=== PATIENT | female | born 1945 | race Caucasian/White ===

== ENCOUNTER → 2016-08-22 | Outpatient (CLI) | payer MEDICARE, OTHER ==
[~2016-08-22] MED LIST: AMARYL4 MG PO; AMIODARONE HCL200 MG PO; CLARITIN10 MG PO; CLOBETASOL EMU100 GM TP; ELIQUIS2.5 MG PO; FEOSOL325 MG PO; GLIMEPIRIDE4 MG PO; GYNE-LOTRIMIN 145 GM EXT; HUMALOG100 UNIT/2 SQ; JANUVIA50 MG PO; LANTUS100 UNIT/1 SQ; LASIX40 MG PO; LEVAQUIN500 MG PO; LEVEMIR100 UNIT/1 SC; LIPITOR TAB 2020 MG PO; LOPRESSOR 50 MG50 MG PO; LOTRIMIN CREAM45 GM TD; NEURONTIN 300300 MG PO; NITROSTAT0.4 MG SL; NORCO 10-325 T1 EACH PO; NORCO 5-325 TA1 EACH PO; NORVASC 5 MG TAB5 MG PO; SINGULAIR10 MG PO; TERAZOL 745 GM TD; TERAZOL 745 GM TOP; TERAZOL 745 GM VG; TRADJENTA5 MG PO; VITAMIN B-1000 MCG/M IM; ZOLOFT100 MG PO; ZYRTEC10 MG PO
== END ==
LOC: HEART 5 15:20
DX: I50.22 Chronic systolic (congestive) heart failure (principal); I42.0 Dilated cardiomyopathy
CPT/HCPCS: 93306

== ENCOUNTER 2016-09-10 05:48 | Emergency (ER) | payer MEDICARE, OTHER ==
[~2016-09-10 05:48] MED LIST changes: -AMIODARONE HCL200 MG PO; -CLOBETASOL EMU100 GM TP; -GLIMEPIRIDE4 MG PO; -GYNE-LOTRIMIN 145 GM EXT; -HUMALOG100 UNIT/2 SQ; -LANTUS100 UNIT/1 SQ; -LEVAQUIN500 MG PO; -LOTRIMIN CREAM45 GM TD; -NITROSTAT0.4 MG SL; -NORCO 5-325 TA1 EACH PO; -SINGULAIR10 MG PO; -TERAZOL 745 GM TD; -TERAZOL 745 GM TOP; -TERAZOL 745 GM VG; -TRADJENTA5 MG PO; -VITAMIN B-1000 MCG/M IM
[2016-11-13] MEDS ORDERED: GLIMEPIRIDE4 MG PO (22:50)
[2016-11-13] MEDS ORDERED: VITAMIN B-1000 MCG/M IM (22:52)
[2016-11-13] MEDS ORDERED: TERAZOL 745 GM TOP (22:53)
[2016-11-13] MEDS ORDERED: NITROSTAT0.4 MG SL (22:59)
[2016-11-15] MEDS ORDERED: LASIX40 MG PO (14:22)
[2016-11-15] MEDS ORDERED: SINGULAIR10 MG PO (14:59)
[2016-11-15] MEDS ORDERED: TERAZOL 745 GM VG (22:54)
[2016-11-15] MEDS ORDERED: CLOBETASOL EMU100 GM TP (22:55)
[2016-11-15] MEDS ORDERED: GYNE-LOTRIMIN 145 GM EXT (22:56)
[2016-11-20] MEDS ORDERED: TRADJENTA5 MG PO (08:14)
[2016-11-20] MEDS ORDERED: TERAZOL 745 GM TD (08:14)
[2016-11-20] MEDS ORDERED: LOTRIMIN CREAM45 GM TD (08:15)
[2016-11-20] MEDS ORDERED: LANTUS100 UNIT/1 SQ (08:16)
[2016-11-20] MEDS ORDERED: HUMALOG100 UNIT/2 SQ (08:16)
[2016-11-20] MEDS ORDERED: NORVASC 5 MG TAB5 MG PO (08:17)
[2016-11-21] MEDS ORDERED: AMIODARONE HCL200 MG PO (09:29)
[2016-11-21] MEDS ORDERED: LEVAQUIN500 MG PO (09:35)
[2016-11-21] MEDS ORDERED: NORCO 5-325 TA1 EACH PO (09:37)
== END 2016-09-10 07:33 | disposition home or self-care (01) ==
LOC: ER1 05:48
DX: R22.43 Localized swelling, mass and lump, lower limb, bilateral (principal); E11.9 Type 2 diabetes mellitus without complications; Z79.84 Long term (current) use of oral hypoglycemic drugs; Z79.4 Long term (current) use of insulin; Z79.899 Other long term (current) drug therapy
CPT/HCPCS: 99283

== ENCOUNTER 2016-09-20 21:41 | Emergency (ER) | payer MEDICARE, OTHER ==
[2016-09-20 22:55] LABS: HEMOGLOBIN 11.3 gm/dl (12.3-15.3); RED BLOOD COUNT 3.91 M/UL (4.00-5.10); WHITE BLOOD COUNT 5.9 K/UL (4.5-11.0)
[2016-11-13] MEDS ORDERED: GLIMEPIRIDE4 MG PO (22:50)
[2016-11-13] MEDS ORDERED: VITAMIN B-1000 MCG/M IM (22:52)
[2016-11-13] MEDS ORDERED: TERAZOL 745 GM TOP (22:53)
[2016-11-13] MEDS ORDERED: NITROSTAT0.4 MG SL (22:59)
[2016-11-15] MEDS ORDERED: LASIX40 MG PO (14:22)
[2016-11-15] MEDS ORDERED: SINGULAIR10 MG PO (14:59)
[2016-11-15] MEDS ORDERED: TERAZOL 745 GM VG (22:54)
[2016-11-15] MEDS ORDERED: CLOBETASOL EMU100 GM TP (22:55)
[2016-11-15] MEDS ORDERED: GYNE-LOTRIMIN 145 GM EXT (22:56)
[2016-11-20] MEDS ORDERED: TERAZOL 745 GM TD (08:14)
[2016-11-20] MEDS ORDERED: TRADJENTA5 MG PO (08:14)
[2016-11-20] MEDS ORDERED: LOTRIMIN CREAM45 GM TD (08:15)
[2016-11-20] MEDS ORDERED: LANTUS100 UNIT/1 SQ (08:16)
[2016-11-20] MEDS ORDERED: HUMALOG100 UNIT/2 SQ (08:16)
[2016-11-20] MEDS ORDERED: NORVASC 5 MG TAB5 MG PO (08:17)
[2016-11-21] MEDS ORDERED: AMIODARONE HCL200 MG PO (09:29)
[2016-11-21] MEDS ORDERED: LEVAQUIN500 MG PO (09:35)
[2016-11-21] MEDS ORDERED: NORCO 5-325 TA1 EACH PO (09:37)
== END 2016-09-21 02:27 | disposition home or self-care (01) ==
LOC: ER1 21:41
PROVIDERS: Emergency Medicine
DX: I13.0 Hypertensive heart and chronic kidney disease with heart failure and stage 1 through stage 4 chronic kidney disease, or unspecified chronic kidney disease (principal); I50.20 Unspecified systolic (congestive) heart failure; N18.9 Chronic kidney disease, unspecified; E87.6 Hypokalemia; J06.9 Acute upper respiratory infection, unspecified; E11.22 Type 2 diabetes mellitus with diabetic chronic kidney disease
CPT/HCPCS: 36415; 71010; 80053; 82550; 82553; 83874; 83880; 84443; 84484; 85025; 93005; 99285; J0696

== ENCOUNTER 2016-10-12 20:11 | Emergency (ER) | payer MEDICARE, OTHER ==
[2016-10-12 21:59] LABS: HEMOGLOBIN 10.6 gm/dl (12.3-15.3); RED BLOOD COUNT 3.72 M/UL (4.00-5.10)
[2016-11-13] MEDS ORDERED: GLIMEPIRIDE4 MG PO (22:50)
[2016-11-13] MEDS ORDERED: VITAMIN B-1000 MCG/M IM (22:52)
[2016-11-13] MEDS ORDERED: TERAZOL 745 GM TOP (22:53)
[2016-11-13] MEDS ORDERED: NITROSTAT0.4 MG SL (22:59)
[2016-11-15] MEDS ORDERED: LASIX40 MG PO (14:22)
[2016-11-15] MEDS ORDERED: SINGULAIR10 MG PO (14:59)
[2016-11-15] MEDS ORDERED: TERAZOL 745 GM VG (22:54)
[2016-11-15] MEDS ORDERED: CLOBETASOL EMU100 GM TP (22:55)
[2016-11-15] MEDS ORDERED: GYNE-LOTRIMIN 145 GM EXT (22:56)
[2016-11-20] MEDS ORDERED: TERAZOL 745 GM TD (08:14)
[2016-11-20] MEDS ORDERED: TRADJENTA5 MG PO (08:14)
[2016-11-20] MEDS ORDERED: LOTRIMIN CREAM45 GM TD (08:15)
[2016-11-20] MEDS ORDERED: LANTUS100 UNIT/1 SQ (08:16)
[2016-11-20] MEDS ORDERED: HUMALOG100 UNIT/2 SQ (08:16)
[2016-11-20] MEDS ORDERED: NORVASC 5 MG TAB5 MG PO (08:17)
[2016-11-21] MEDS ORDERED: AMIODARONE HCL200 MG PO (09:29)
[2016-11-21] MEDS ORDERED: LEVAQUIN500 MG PO (09:35)
[2016-11-21] MEDS ORDERED: NORCO 5-325 TA1 EACH PO (09:37)
== END 2016-10-13 00:30 | disposition home or self-care (01) ==
LOC: ER1 20:11
PROVIDERS: Emergency Medicine
DX: J18.9 Pneumonia, unspecified organism (principal)
CPT/HCPCS: 36415; 71010; 80053; 83605; 83880; 84484; 85025; 87040; 87070; 87205; 93005; 94664; 96361; 96374; 96375; 99284; J1940; J2543; J3370; J7050

== ENCOUNTER 2020-04-11 23:25 | Inpatient (IN) | payer MEDICARE, OTHER ==
[~2020-04-11] VITALS: Ht 167.6 cm; Wt 122.0 kg
[~2020-04-11 23:25] MED LIST changes: +AMIODARONE HCL200 MG PO; +AMOX TR-K CLV1 EAC4 PO; +CEPHALEXIN500 MG PO; +CLARITIN 10MG T10 MG PO; +CLEOCIN 150MG150 MG PO; +CLOBETASOL EMU100 GM TP; +CYANOCOBAL1000 MCG/1 INJ; +GABAPENTIN400 MG PO; +GLIMEPIRIDE4 MG PO; +GYNE-LOTRIMIN 145 GM EXT; +HUMALOG 10100 UNITS/ SC; +HUMALOG100 UNIT/3 SQ; +HYSEPT473 ML TOP; +KEFLEX500 MG PO; +LANTUS INS100 UTS/M1 SQ; +LANTUS SOL100 UNIT/1 SQ; +LEVAQUIN500 MG PO; +LOTRIMIN CREAM15 GM TP; +LOTRIMIN CREAM45 GM TD; +MYCOSTATIN100000 UTS PO; -NEURONTIN 300300 MG PO; +NEURONTIN 400400 MG PO; +NITROSTAT0.4 MG SL; +NORCO 5-325 TA1 EACH PO; +OMNICEF 300 MG300 MG PO; +SINGULAIR10 MG PO; +TERAZOL 745 GM TD; +TERAZOL 745 GM TOP; +TERAZOL 745 GM VG; +TIROSINT50 MCG PO; +TRADJENTA5 MG PO; +VANCOMYCIN HCL125 MG PO; +VANCOMYCIN500 MG/101 IV; +VITAMIN C1000 MG PO; +ZESTRIL5 MG PO; +ZITHROMAX TRI-500 MG PO
[2020-04-12 01:22] LABS: HEMOGLOBIN 12.7 gm/dl (12.3-15.3); RED BLOOD COUNT 4.19 M/UL (4.00-5.10)
[2020-04-12 07:54] LABS: HEMOGLOBIN 11.3 gm/dl (12.3-15.3); RED BLOOD COUNT 3.79 M/UL (4.00-5.10); WHITE BLOOD COUNT 10.7 K/UL (4.5-11.0)
[2020-04-13 05:04] LABS: BORDETELLA PARAPERTUSSIS Not Detected (Not Detectd); BORDETELLA PERTUSSIS Not Detected (Not Detectd); CHLAMYDIA PNEUMONIAE Not Detected (Not Detectd); CORONAVIRUS HKU1 Not Detected (Not Detectd); CORONAVIRUS NL63 Not Detected (Not Detectd); CORONAVIRUS OC43 Not Detected (Not Detectd); CORONOAVIRUS 229E Not Detected (Not Detectd); HUMAN METAPNEUMOVIRUS Not Detected (Not Detectd); HUMAN RHINOVIRUS/ENTEROVIRUS Not Detected (Not Detectd); INFLUENZA A Not Detected (Not Detectd); INFLUENZA B Not Detected (Not Detectd); MYCOPLASMA PNEUMONIAE Not Detected (Not Detectd); PARAINFLUENZA VIRUS 1 Not Detected (Not Detectd); PARAINFLUENZA VIRUS 2 Not Detected (Not Detectd); PARAINFLUENZA VIRUS 3 Not Detected (Not Detectd); PARAINFLUENZA VIRUS 4 Not Detected (Not Detectd); RESPIRATORY SYNCYTIAL VIRUS Not Detected (Not Detectd)
[2020-04-13 06:20] LABS: SARS-CoV-2 DETECTED (Not Detectd)
[2020-04-14 11:07] LABS: HEMOGLOBIN 11.5 gm/dl (12.3-15.3); RED BLOOD COUNT 3.83 M/UL (4.00-5.10)
[2020-04-15 05:25] LABS: RED BLOOD COUNT 3.66 M/UL (4.00-5.10); WHITE BLOOD COUNT 7.3 K/UL (4.5-11.0)
[2020-04-18] MEDS ORDERED: LISINOPRIL10 MG PO (12:06)
[2020-04-18] MEDS ORDERED: AMPICILLIN 500500 MG PO (12:11)
== END 2020-04-18 15:40 | disposition home health service (06) | DRG 871 ==
LOC: ER1 23:25 → CDU 04-12 02:52 → MED SURG 4 04-12 16:54
PROVIDERS: Emergency Medicine; Internal Medicine; ADMIT Internal Medicine
PROC: XW033E5 Introduction of Remdesivir Anti-infective into Peripheral Vein, Percutaneous Approach, New Technology Group 5 (ICD-10-PCS; 2020-04-13)
PROC: 8E0ZXY6 Isolation (ICD-10-PCS; 2020-04-13)
PROC: XW13325 Transfusion of Convalescent Plasma (Nonautologous) into Peripheral Vein, Percutaneous Approach, New Technology Group 5 (ICD-10-PCS; principal; 2020-04-14)
DX: A41.89 Other specified sepsis (principal); U07.1 COVID-19; J12.89 Other viral pneumonia; J15.9 Unspecified bacterial pneumonia; J96.21 Acute and chronic respiratory failure with hypoxia; E66.2 Morbid (severe) obesity with alveolar hypoventilation; Z68.41 Body mass index [BMI] 40.0-44.9, adult; I50.32 Chronic diastolic (congestive) heart failure; A41.81 Sepsis due to Enterococcus; D69.6 Thrombocytopenia, unspecified; I11.0 Hypertensive heart disease with heart failure; L89.326 Pressure-induced deep tissue damage of left buttock; L89.316 Pressure-induced deep tissue damage of right buttock; L89.892 Pressure ulcer of other site, stage 2; E11.621 Type 2 diabetes mellitus with foot ulcer; E78.5 Hyperlipidemia, unspecified; L97.529 Non-pressure chronic ulcer of other part of left foot with unspecified severity; I48.0 Paroxysmal atrial fibrillation; Z95.810 Presence of automatic (implantable) cardiac defibrillator; Z99.81 Dependence on supplemental oxygen; Z90.49 Acquired absence of other specified parts of digestive tract; Z83.3 Family history of diabetes mellitus; Z79.890 Hormone replacement therapy; Z79.4 Long term (current) use of insulin; Z79.899 Other long term (current) drug therapy
CPT/HCPCS: 36415; 36600; 51701; 71045; 80048; 80053; 80202; 81001; 82803; 82962; 83605; 83735; 84100; 85025; 86900; 86901; 86927; 87040; 87077; 87086; 87186; 87633; 93005; 94760; 96365; 96366; 96367; 96368; 96375; 99285; J0290; J0456; J0696; J1100; J1650; J2405; J2550; J3370; J3475; J7030; J7070; U0002

== ENCOUNTER 2020-09-14 08:51 | Emergency (ER) | payer MEDICARE, OTHER ==
[~2020-09-14 08:51] MED LIST changes: +AMPICILLIN 500500 MG PO; +LISINOPRIL10 MG PO
[2020-09-15] MEDS ORDERED: BACTROBAN OINT22 GM TOP (12:25)
[2020-09-15] MEDS ORDERED: NYSTATIN15 GM TP (12:26)
[2020-09-15] MEDS ORDERED: KETOCONAZOLE120 ML TP (12:26)
[2020-09-15] MEDS ORDERED: LISINOPRIL5 MG PO (12:27)
[2020-09-15] MEDS ORDERED: VITAMIN D21250 MCG PO (14:35)
== END 2020-09-14 10:45 | disposition home or self-care (01) ==
LOC: ER1 08:51
DX: Z20.822 Contact with and (suspected) exposure to COVID-19 (principal); E11.9 Type 2 diabetes mellitus without complications; I50.9 Heart failure, unspecified
CPT/HCPCS: 0240U; 99282; J7030

== ENCOUNTER 2020-09-14 23:31 | Inpatient (IN) | payer MEDICARE, OTHER ==
[~2020-09-14] VITALS: Ht 167.6 cm; Wt 129.0 kg
[2020-09-15 00:10] LABS: HEMOGLOBIN 14.6 gm/dl (12.3-15.3); RED BLOOD COUNT 4.81 M/UL (4.00-5.10); WHITE BLOOD COUNT 16.7 K/UL (4.5-11.0)
[2020-09-15 00:38] LABS: BUN/CREATININE RATIO 13 (0-10)
[2020-09-15 03:25] LABS: BORDETELLA PARAPERTUSSIS Not Detected (Not Detectd); BORDETELLA PERTUSSIS Not Detected (Not Detectd); CHLAMYDIA PNEUMONIAE Not Detected (Not Detectd); CORONAVIRUS HKU1 Not Detected (Not Detectd); CORONAVIRUS NL63 Not Detected (Not Detectd); CORONAVIRUS OC43 Not Detected (Not Detectd); CORONOAVIRUS 229E Not Detected (Not Detectd); HUMAN METAPNEUMOVIRUS Not Detected (Not Detectd); HUMAN RHINOVIRUS/ENTEROVIRUS Not Detected (Not Detectd); INFLUENZA A Not Detected (Not Detectd); INFLUENZA B Not Detected (Not Detectd); MYCOPLASMA PNEUMONIAE Not Detected (Not Detectd); PARAINFLUENZA VIRUS 1 Not Detected (Not Detectd); PARAINFLUENZA VIRUS 2 Not Detected (Not Detectd); PARAINFLUENZA VIRUS 3 Not Detected (Not Detectd); PARAINFLUENZA VIRUS 4 Not Detected (Not Detectd); RESPIRATORY SYNCYTIAL VIRUS Not Detected (Not Detectd)
[2020-09-15 04:33] LABS: SARS-CoV-2 NOT DETECTED (Not Detectd)
[2020-09-15] MEDS ORDERED: BACTROBAN OINT22 GM TOP (12:25)
[2020-09-15] MEDS ORDERED: KETOCONAZOLE120 ML TP (12:26)
[2020-09-15] MEDS ORDERED: NYSTATIN15 GM TP (12:26)
[2020-09-15] MEDS ORDERED: LISINOPRIL5 MG PO (12:27)
[2020-09-15 13:05] LABS: ACINETOBACTER BAUMANNII Not Detected (Negative); CANDIDA ALBICANS Not Detected (Negative); CANDIDA KRUSEI Not Detected (Negative); CANDIDA TROPICALIS Not Detected (Negative); ENTEROCOCCUS Not Detected (Negative); ESCHERICHIA COLI Not Detected (Negative); HAEMOPHILUS INFLUENZAE Not Detected (Negative); KLEBSIELLA OXYTOCA Not Detected (Negative); KLEBSIELLA PNEUMONIAE Not Detected (Negative); KPC-CARBAPENEM-RESISTANCE GENE Not Detected (Negative); PROTEUS Not Detected (Negative); PSEUDOMONAS AERUGINOSA Not Detected (Negative); SERRATIA MARCESANS Not Detected (Negative); STAPHYLOCOCCUS Not Detected (Negative); STAPHYLOCOCCUS AUREUS Not Detected (Negative); STREP AGALACTIAE (GROUP B) Not Detected (Negative); STREP PYOGENES (GROUP A) Not Detected (Negative); mecA (METHICILLIN RESIST GENE Not Detected (Negative); vanA/B (VANCOMYCIN RESIST GENE Not Detected (Negative)
[2020-09-15] MEDS ORDERED: VITAMIN D21250 MCG PO (14:35)
[2020-09-15 15:05] LABS: STREPTOCOCCUS DETECTED (Negative)
[2020-09-16 02:46] LABS: HEMOGLOBIN 11.7 gm/dl (12.3-15.3); RED BLOOD COUNT 3.89 M/UL (4.00-5.10); WHITE BLOOD COUNT 11.1 K/UL (4.5-11.0)
[2020-09-18 03:41] LABS: HEMOGLOBIN 11.1 gm/dl (12.3-15.3); RED BLOOD COUNT 3.78 M/UL (4.00-5.10)
[2020-09-18 03:42] LABS: WHITE BLOOD COUNT 8.2 K/UL (4.5-11.0)
[2020-09-18 11:04] LABS: ADENOVIRUS F 40/41 Not Detected (Negative); ASTROVIRUS Not Detected (Negative); CAMPYLOBACTER Not Detected (Negative); CLOSTRIDIUM DIFFICILE TOX A/B Not Detected (Negative); CRYPTOSPORIDIUM Not Detected (Negative); E.COLI 0157 Not Detected (Negative); ENTAMOEBA HISTOLYTICA Not Detected (Negative); ENTEROAGGREGATIVE E.COLI (EAEC Not Detected (Negative); ENTEROPATHOGENIC E.COLI (EPEC) Not Detected (Negative); ENTEROTOXIGENIC E.COLI (ETEC) Not Detected (Negative); GIARDIA LAMBLIA Not Detected (Negative); NOROVIRUS GI/GII Not Detected (Negative); PLESIOMONAS SHIGELLOIDES Not Detected (Negative); ROTOVIRUS A Not Detected (Negative); SALMONELLA Not Detected (Negative); SAPOVIRUS Not Detected (Negative); SHIG/ENTEROINVAS.ECOLI (EIEC) Not Detected (Negative); SHIGA-LIK TOX.PRO.E.COLI (STEC Not Detected (Negative); VIBRIO Not Detected (Negative); VIBRIO CHOLERAE Not Detected (Negative); YERSINIA ENTEROCOLITICA Not Detected (Negative)
[2020-09-19 03:20] LABS: RED BLOOD COUNT 4.03 M/UL (4.00-5.10); WHITE BLOOD COUNT 8.6 K/UL (4.5-11.0)
[2020-09-20 09:48] LABS: RED BLOOD COUNT 4.03 M/UL (4.00-5.10); WHITE BLOOD COUNT 6.7 K/UL (4.5-11.0)
[2020-09-21 03:53] LABS: HEMOGLOBIN 11.3 gm/dl (12.3-15.3); RED BLOOD COUNT 3.84 M/UL (4.00-5.10); WHITE BLOOD COUNT 5.2 K/UL (4.5-11.0)
[2020-09-22 03:26] LABS: HEMOGLOBIN 11.5 gm/dl (12.3-15.3); RED BLOOD COUNT 3.84 M/UL (4.00-5.10)
[2020-09-24 05:32] LABS: HEMOGLOBIN 12.4 gm/dl (12.3-15.3)
[2020-09-24 05:42] LABS: RED BLOOD COUNT 4.44 M/UL (4.00-5.10)
[2020-09-26 05:27] LABS: HEMOGLOBIN 12.4 gm/dl (12.3-15.3); RED BLOOD COUNT 4.18 M/UL (4.00-5.10); WHITE BLOOD COUNT 6.1 K/UL (4.5-11.0)
[2020-09-27 02:46] LABS: HEMOGLOBIN 12.1 gm/dl (12.3-15.3); RED BLOOD COUNT 4.11 M/UL (4.00-5.10); WHITE BLOOD COUNT 5.6 K/UL (4.5-11.0)
--- NOTE | 2020-09-27 10:46 | NUR ---
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 Dr. Gupta on the floor reported of patient frequent bowel movement-soft but not liquid form, patient hemmoroids and discolored buttocks/cocyx area with no skin opening. acknowledged
--- NOTE | 2020-09-28 08:00 | NUR ---
patient checks his own sugar and manages his own insulin.
[2020-09-28] MEDS ORDERED: LISINOPRIL5 MG PO (10:39)
[2020-09-28] MEDS ORDERED: AMLODIPINE BESYL5 MG PO (10:39)
[2020-09-28] MEDS ORDERED: K-DUR TAB 20 M20 MEQ PO (10:39)
[2020-09-28] MEDS ORDERED: ELIQUIS 5 MG TAB5 MG PO (10:39)
[2020-09-28] MEDS ORDERED: FUROSEMIDE40 MG PO (10:39)
[2020-09-28] MEDS ORDERED: BENZONATATE100 MG PO (10:39)
[2020-09-28] MEDS ORDERED: GABAPENTIN300 MG PO (10:39)
[2020-09-28] MEDS ORDERED: SERTRALINE HCL50 MG PO (10:39)
--- NOTE | 2020-09-28 11:00 | NUR ---
reported earlier to dr. ingram during his rounds of patient right eyes. patient informed md that this is not a new episode and the condition of her right eyes happened before and it will subside. patient denies pain, no swelling, no blurry vision reproted
[2020-09-29 05:51] LABS: HEMOGLOBIN 13.6 gm/dl (12.3-15.3); RED BLOOD COUNT 4.58 M/UL (4.00-5.10); WHITE BLOOD COUNT 4.9 K/UL (4.5-11.0)
[2020-09-29] MEDS ORDERED: ATORVASTATIN CA20 MG PO (11:17)
== END 2020-09-29 21:00 | DRG 871 ==
LOC: ER1 23:31 → PROG CARE 09-15 01:41 → M/S 09-15 01:41 → CDU 09-15 01:41 → PROG CARE 09-15 14:48 → M/S 09-18 19:52
PROVIDERS: Family Medicine; Internal Medicine; Internal Medicine Infectious Disease; Physician Assistant; ADMIT Internal Medicine
DX: A40.9 Streptococcal sepsis, unspecified (principal); J18.9 Pneumonia, unspecified organism; J96.01 Acute respiratory failure with hypoxia; G93.41 Metabolic encephalopathy; I50.33 Acute on chronic diastolic (congestive) heart failure; L97.429 Non-pressure chronic ulcer of left heel and midfoot with unspecified severity; I48.20 Chronic atrial fibrillation, unspecified; I42.0 Dilated cardiomyopathy; E66.2 Morbid (severe) obesity with alveolar hypoventilation; N17.9 Acute kidney failure, unspecified; M86.9 Osteomyelitis, unspecified; I42.8 Other cardiomyopathies; I13.0 Hypertensive heart and chronic kidney disease with heart failure and stage 1 through stage 4 chronic kidney disease, or unspecified chronic kidney disease; A52.16 Charcot's arthropathy (tabetic); Z68.42 Body mass index [BMI] 45.0-49.9, adult; N30.00 Acute cystitis without hematuria; E03.9 Hypothyroidism, unspecified; E78.5 Hyperlipidemia, unspecified; R53.81 Other malaise; D63.8 Anemia in other chronic diseases classified elsewhere; B96.4 Proteus (mirabilis) (morganii) as the cause of diseases classified elsewhere; K52.9 Noninfective gastroenteritis and colitis, unspecified; Z20.822 Contact with and (suspected) exposure to COVID-19; E11.9 Type 2 diabetes mellitus without complications; E87.6 Hypokalemia; B95.4 Other streptococcus as the cause of diseases classified elsewhere; K21.9 Gastro-esophageal reflux disease without esophagitis; Z66 Do not resuscitate; G62.9 Polyneuropathy, unspecified; I95.9 Hypotension, unspecified; I44.7 Left bundle-branch block, unspecified; F32.9 Major depressive disorder, single episode, unspecified; D69.6 Thrombocytopenia, unspecified; E86.0 Dehydration; M81.0 Age-related osteoporosis without current pathological fracture; N18.30 Chronic kidney disease, stage 3 unspecified; Z88.8 Allergy status to other drugs, medicaments and biological substances; Z86.73 Personal history of transient ischemic attack (TIA), and cerebral infarction without residual deficits; Z79.01 Long term (current) use of anticoagulants; Z95.810 Presence of automatic (implantable) cardiac defibrillator; Z90.49 Acquired absence of other specified parts of digestive tract; Z83.3 Family history of diabetes mellitus; Z91.010 Allergy to peanuts; Z82.49 Family history of ischemic heart disease and other diseases of the circulatory system; Z86.16 Personal history of COVID-19
CPT/HCPCS: ECHO; 0240U; 36415; 36600; 71045; 80048; 80053; 80202; 81001; 82550; 82553; 82803; 82962; 83605; 83735; 83874; 83880; 84484; 85025; 85610; 85730; 86140; 87040; 87077; 87086; 87150; 87186; 87507; 87633; 93005; 93306; 94760; 96365; 96375; 97110; 97110-GP-CQ; 97116; 97116-GP-CQ; 97162; 97166; 97530; 97530-GP-CQ; 99282; 99285; A6212; J0360; J0456; J0696; J1335; J1940; J2405; J2543; J3370; J7030; J7070; U0002

== ENCOUNTER → 2021-02-07 | Outpatient (CLI) | payer MEDICARE, OTHER ==
[~2021-02-07] MED LIST changes: +AMLODIPINE BESYL5 MG PO; +ATORVASTATIN CA20 MG PO; +BACTROBAN OINT22 GM TOP; +BENZONATATE100 MG PO; +ELIQUIS 5 MG TAB5 MG PO; +FUROSEMIDE40 MG PO; +GABAPENTIN300 MG PO; +K-DUR TAB 20 M20 MEQ PO; +KETOCONAZOLE120 ML TP; +LISINOPRIL5 MG PO; +NYSTATIN15 GM TP; +SERTRALINE HCL50 MG PO; +VITAMIN D21250 MCG PO
== END ==
LOC: US 12-21 13:30
PROVIDERS: Internal Medicine Nephrology
DX: N18.32 Chronic kidney disease, stage 3b (principal); N25.81 Secondary hyperparathyroidism of renal origin; E87.6 Hypokalemia; N20.0 Calculus of kidney; N26.1 Atrophy of kidney (terminal)
CPT/HCPCS: 36415; 80053; 82570; 83735; 83970; 84100; 84156

== ENCOUNTER 2021-04-19 16:48 | Emergency (ER) | payer MEDICARE, OTHER ==
[2021-04-19 21:24] LABS: HEMOGLOBIN 13.5 gm/dl (12.3-15.3); RED BLOOD COUNT 4.81 M/UL (4.00-5.10); WHITE BLOOD COUNT 5.5 K/UL (4.5-11.0)
[2021-04-19 21:46] LABS: BUN/CREATININE RATIO 11 (0-10)
[2021-04-20] MEDS ORDERED: AUGMENTIN 875-1 EACH PO (01:05)
[2021-04-20] MEDS ORDERED: ZOFRAN ODT 4 MG4 MG PO (01:05)
== END 2021-04-20 01:20 | disposition home or self-care (01) ==
LOC: ER1 16:48
PROVIDERS: Physician Assistant
DX: E11.621 Type 2 diabetes mellitus with foot ulcer (principal); E11.65 Type 2 diabetes mellitus with hyperglycemia; I48.91 Unspecified atrial fibrillation; I10 Essential (primary) hypertension; L03.116 Cellulitis of left lower limb; E66.01 Morbid (severe) obesity due to excess calories; Z20.822 Contact with and (suspected) exposure to COVID-19; E78.5 Hyperlipidemia, unspecified; K21.9 Gastro-esophageal reflux disease without esophagitis; Z90.49 Acquired absence of other specified parts of digestive tract; Z88.2 Allergy status to sulfonamides
CPT/HCPCS: 36415; 36600; 51701; 71045; 73630; 80053; 81001; 82550; 82553; 82803; 83605; 83690; 83874; 84484; 85025; 86140; 93005; 99285; U0002

== ENCOUNTER 2021-08-14 15:17 | Inpatient (IN) | payer MEDICARE, OTHER ==
[~2021-08-14] VITALS: Ht 167.6 cm; Wt 126.8 kg
[~2021-08-14 15:17] MED LIST changes: +AUGMENTIN 875-1 EACH PO; +LEVOTHYROXINE50 MCG PO; -TIROSINT50 MCG PO; +ZOFRAN ODT 4 MG4 MG PO
[2021-08-14 15:42] LABS: HEMOGLOBIN 13.2 gm/dl (12.3-15.3); RED BLOOD COUNT 4.57 M/UL (4.00-5.10); WHITE BLOOD COUNT 9.4 K/UL (4.5-11.0)
[2021-08-15] MEDS ORDERED: SYNTHROID50 MCG PO (03:42)
[2021-08-15] MEDS ORDERED: ATORVASTATIN CA40 MG PO (03:43)
[2021-08-15] MEDS ORDERED: SERTRALINE HCL100 MG PO (03:43)
[2021-08-15] MEDS ORDERED: LISINOPRIL30 MG PO (03:43)
[2021-08-15 04:36] LABS: HEMOGLOBIN 12.2 gm/dl (12.3-15.3); RED BLOOD COUNT 4.27 M/UL (4.00-5.10); WHITE BLOOD COUNT 10.5 K/UL (4.5-11.0)
[2021-08-15] MEDS ORDERED: GABAPENTIN400 MG PO (09:21)
[2021-08-15] MEDS ORDERED: LANTUS100 UNIT/1 SC (09:24)
[2021-08-15] MEDS ORDERED: LEVEMIR FL100 UNIT/1 SQ (12:31)
[2021-08-15] MEDS ORDERED: GLIMEPIRIDE4 MG PO (12:32)
[2021-08-15] MEDS ORDERED: HUMALOG100 UNIT/3 SQ (12:34)
[2021-08-16 06:45] LABS: HEMOGLOBIN 11.3 gm/dl (12.3-15.3); RED BLOOD COUNT 3.97 M/UL (4.00-5.10)
[2021-08-16 06:47] LABS: WHITE BLOOD COUNT 5.4 K/UL (4.5-11.0)
[2021-08-17 02:14] LABS: HEMOGLOBIN 11.4 gm/dl (12.3-15.3); RED BLOOD COUNT 4.01 M/UL (4.00-5.10); WHITE BLOOD COUNT 6.4 K/UL (4.5-11.0)
[2021-08-17 09:51] LABS: ADENOVIRUS F 40/41 Not Detected (Negative); ASTROVIRUS Not Detected (Negative); CAMPYLOBACTER Not Detected (Negative); CRYPTOSPORIDIUM Not Detected (Negative); E.COLI 0157 Not Detected (Negative); ENTAMOEBA HISTOLYTICA Not Detected (Negative); ENTEROAGGREGATIVE E.COLI (EAEC Not Detected (Negative); ENTEROTOXIGENIC E.COLI (ETEC) Not Detected (Negative); GIARDIA LAMBLIA Not Detected (Negative); NOROVIRUS GI/GII Not Detected (Negative); PLESIOMONAS SHIGELLOIDES Not Detected (Negative); SALMONELLA Not Detected (Negative); SAPOVIRUS Not Detected (Negative); SHIG/ENTEROINVAS.ECOLI (EIEC) Not Detected (Negative); SHIGA-LIK TOX.PRO.E.COLI (STEC Not Detected (Negative); VIBRIO Not Detected (Negative); VIBRIO CHOLERAE Not Detected (Negative); YERSINIA ENTEROCOLITICA Not Detected (Negative)
[2021-08-17] MEDS ORDERED: LOPRESSOR 25 MG25 MG PO (12:33)
[2021-08-17] MEDS ORDERED: ELIQUIS 2.5 MG2.5 MG PO (12:33)
[2021-08-17] MEDS ORDERED: KEFLEX CAP 250250 MG PO (12:41)
[2021-08-17 12:58] LABS: CLOSTRIDIUM DIFFICILE TOX A/B Not Detected (Negative)
[2021-08-17 12:59] LABS: ENTEROPATHOGENIC E.COLI (EPEC) DETECTED (Negative); ROTOVIRUS A DETECTED (Negative)
--- NOTE | 2021-08-17 15:03 | NUR ---
REPORT CALLED TO ZACK AT [facility]
== END 2021-08-17 14:48 | disposition home health service (06) | DRG 690 ==
LOC: ER1 15:17 → CDU 20:26 → PROG CARE 20:26
PROVIDERS: Internal Medicine; ADMIT Internal Medicine
DX: N30.00 Acute cystitis without hematuria (principal); E66.2 Morbid (severe) obesity with alveolar hypoventilation; I42.0 Dilated cardiomyopathy; J96.11 Chronic respiratory failure with hypoxia; I50.22 Chronic systolic (congestive) heart failure; I13.0 Hypertensive heart and chronic kidney disease with heart failure and stage 1 through stage 4 chronic kidney disease, or unspecified chronic kidney disease; M86.672 Other chronic osteomyelitis, left ankle and foot; I47.1 Supraventricular tachycardia; Z68.42 Body mass index [BMI] 45.0-49.9, adult; I48.91 Unspecified atrial fibrillation; Z20.822 Contact with and (suspected) exposure to COVID-19; K21.9 Gastro-esophageal reflux disease without esophagitis; E78.5 Hyperlipidemia, unspecified; E86.0 Dehydration; K52.9 Noninfective gastroenteritis and colitis, unspecified; E11.628 Type 2 diabetes mellitus with other skin complications; Z66 Do not resuscitate; J30.2 Other seasonal allergic rhinitis; I08.1 Rheumatic disorders of both mitral and tricuspid valves; M81.0 Age-related osteoporosis without current pathological fracture; L97.529 Non-pressure chronic ulcer of other part of left foot with unspecified severity; I44.7 Left bundle-branch block, unspecified; N18.30 Chronic kidney disease, stage 3 unspecified; E11.22 Type 2 diabetes mellitus with diabetic chronic kidney disease; D69.6 Thrombocytopenia, unspecified; E03.9 Hypothyroidism, unspecified; F32.A Depression, unspecified; B96.20 Unspecified Escherichia coli [E. coli] as the cause of diseases classified elsewhere; I87.2 Venous insufficiency (chronic) (peripheral); Z86.73 Personal history of transient ischemic attack (TIA), and cerebral infarction without residual deficits; Z86.16 Personal history of COVID-19; Z87.01 Personal history of pneumonia (recurrent); Z90.49 Acquired absence of other specified parts of digestive tract; Z98.890 Other specified postprocedural states; Z83.3 Family history of diabetes mellitus; Z79.899 Other long term (current) drug therapy; Z82.49 Family history of ischemic heart disease and other diseases of the circulatory system; Z88.8 Allergy status to other drugs, medicaments and biological substances; Z91.010 Allergy to peanuts; Z91.018 Allergy to other foods; Z95.0 Presence of cardiac pacemaker
CPT/HCPCS: 36415; 71045; 80048; 80053; 81001; 82550; 82553; 82962; 83690; 83735; 83880; 84439; 84443; 84484; 85025; 85027; 87077; 87086; 87186; 87449; 87507; 93005; 94760; 96374; 96375; 96376; 97161; 97530; 99285; A6212; G0378; J0696; J1940; J2405; J3475; J3480; U0002

== ENCOUNTER 2021-08-23 13:35 | Inpatient (IN) | payer MEDICARE, OTHER ==
[~2021-08-23] VITALS: Ht 167.6 cm; Wt 122.5 kg
[~2021-08-23 13:35] MED LIST changes: +ATORVASTATIN CA40 MG PO; +ELIQUIS 2.5 MG2.5 MG PO; +KEFLEX CAP 250250 MG PO; +LANTUS100 UNIT/1 SC; +LEVEMIR FL100 UNIT/1 SQ; +LISINOPRIL30 MG PO; +LOPRESSOR 25 MG25 MG PO; +SERTRALINE HCL100 MG PO; +SYNTHROID50 MCG PO
[2021-08-23 14:56] LABS: RED BLOOD COUNT 4.17 M/UL (4.00-5.10); WHITE BLOOD COUNT 6.5 K/UL (4.5-11.0)
[2021-08-23] MEDS ORDERED: METOPROLOL TART25 MG PO (18:29)
[2021-08-23] MEDS ORDERED: METOPROLOL TART50 MG PO (18:29)
[2021-08-23] MEDS ORDERED: LISINOPRIL30 MG PO (18:31)
[2021-08-23] MEDS ORDERED: ATORVASTATIN CA40 MG PO (18:35)
--- NOTE | 2021-08-24 04:06 | NUR ---
APPROX 0015 DID DRESSING CHANGE ON PT LLE, FOOT, RLE, RIGHT FOOT, APPLIED ADHERENT 4X4 PADS , WRAPPED IN KURLEX WRAP. PT TOLERATED WELL.
[2021-08-24 06:42] LABS: HEMOGLOBIN 11.1 gm/dl (12.3-15.3); RED BLOOD COUNT 3.9 M/UL (4.00-5.10); WHITE BLOOD COUNT 5.5 K/UL (4.5-11.0)
[2021-08-25 05:10] LABS: HEMOGLOBIN 11.8 gm/dl (12.3-15.3); RED BLOOD COUNT 4.1 M/UL (4.00-5.10); WHITE BLOOD COUNT 4.9 K/UL (4.5-11.0)
[2021-08-26 03:31] LABS: HEMOGLOBIN 11.2 gm/dl (12.3-15.3); RED BLOOD COUNT 3.89 M/UL (4.00-5.10); WHITE BLOOD COUNT 5.3 K/UL (4.5-11.0)
[2021-08-26 09:37] LABS: ADENOVIRUS F 40/41 Not Detected (Negative); ASTROVIRUS Not Detected (Negative); CAMPYLOBACTER Not Detected (Negative); CRYPTOSPORIDIUM Not Detected (Negative); E.COLI 0157 Not Detected (Negative); ENTAMOEBA HISTOLYTICA Not Detected (Negative); ENTEROAGGREGATIVE E.COLI (EAEC Not Detected (Negative); ENTEROPATHOGENIC E.COLI (EPEC) Not Detected (Negative); ENTEROTOXIGENIC E.COLI (ETEC) Not Detected (Negative); GIARDIA LAMBLIA Not Detected (Negative); NOROVIRUS GI/GII Not Detected (Negative); PLESIOMONAS SHIGELLOIDES Not Detected (Negative); SALMONELLA Not Detected (Negative); SAPOVIRUS Not Detected (Negative); SHIG/ENTEROINVAS.ECOLI (EIEC) Not Detected (Negative); SHIGA-LIK TOX.PRO.E.COLI (STEC Not Detected (Negative); VIBRIO Not Detected (Negative); VIBRIO CHOLERAE Not Detected (Negative); YERSINIA ENTEROCOLITICA Not Detected (Negative)
[2021-08-26 12:57] LABS: CLOSTRIDIUM DIFFICILE TOX A/B Not Detected (Negative)
[2021-08-26 12:58] LABS: ROTOVIRUS A DETECTED (Negative)
[2021-08-27 05:06] LABS: HEMOGLOBIN 11.7 gm/dl (12.3-15.3); RED BLOOD COUNT 4.07 M/UL (4.00-5.10); WHITE BLOOD COUNT 5.7 K/UL (4.5-11.0)
[2021-08-28 03:00] LABS: HEMOGLOBIN 11.5 gm/dl (12.3-15.3); RED BLOOD COUNT 4.03 M/UL (4.00-5.10); WHITE BLOOD COUNT 5.7 K/UL (4.5-11.0)
[2021-08-29 03:17] LABS: HEMOGLOBIN 10.9 gm/dl (12.3-15.3); RED BLOOD COUNT 3.77 M/UL (4.00-5.10); WHITE BLOOD COUNT 4.3 K/UL (4.5-11.0)
[2021-08-30 02:58] LABS: HEMOGLOBIN 10.3 gm/dl (12.3-15.3); RED BLOOD COUNT 3.56 M/UL (4.00-5.10); WHITE BLOOD COUNT 4.1 K/UL (4.5-11.0)
[2021-08-31 06:09] LABS: HEMOGLOBIN 10.6 gm/dl (12.3-15.3); RED BLOOD COUNT 3.7 M/UL (4.00-5.10); WHITE BLOOD COUNT 3.2 K/UL (4.5-11.0)
[2021-09-01 04:32] LABS: HEMOGLOBIN 10.2 gm/dl (12.3-15.3); RED BLOOD COUNT 3.59 M/UL (4.00-5.10)
[2021-09-02 18:47] LABS: HEMOGLOBIN 11.6 gm/dl (12.3-15.3); WHITE BLOOD COUNT 3.7 K/UL (4.5-11.0)
[2021-09-02 18:51] LABS: RED BLOOD COUNT 4.04 M/UL (4.00-5.10)
[2021-09-03] MEDS ORDERED: DEX4 GLUCOSE4 GM PO (11:23)
[2021-09-03] MEDS ORDERED: AMOX TR-K CLV1 EAC3 PO (11:23)
== END 2021-09-03 14:05 | disposition home health service (06) | DRG 638 ==
LOC: ER1 13:35 → MED SURG 4 17:53 → CDU 17:53 → MED SURG 4 20:22
PROVIDERS: Internal Medicine; Physician Assistant; ADMIT Internal Medicine
DX: E11.621 Type 2 diabetes mellitus with foot ulcer (principal); Z16.22 Resistance to vancomycin related antibiotics; I42.0 Dilated cardiomyopathy; I48.20 Chronic atrial fibrillation, unspecified; E66.2 Morbid (severe) obesity with alveolar hypoventilation; J96.11 Chronic respiratory failure with hypoxia; J96.12 Chronic respiratory failure with hypercapnia; L97.429 Non-pressure chronic ulcer of left heel and midfoot with unspecified severity; L97.419 Non-pressure chronic ulcer of right heel and midfoot with unspecified severity; L03.115 Cellulitis of right lower limb; A08.0 Rotaviral enteritis; Z20.822 Contact with and (suspected) exposure to COVID-19; N17.9 Acute kidney failure, unspecified; E78.5 Hyperlipidemia, unspecified; Z66 Do not resuscitate; K21.9 Gastro-esophageal reflux disease without esophagitis; E11.610 Type 2 diabetes mellitus with diabetic neuropathic arthropathy; N18.30 Chronic kidney disease, stage 3 unspecified; E11.22 Type 2 diabetes mellitus with diabetic chronic kidney disease; I44.7 Left bundle-branch block, unspecified; W01.0XXA Fall on same level from slipping, tripping and stumbling without subsequent striking against object, initial encounter; I12.9 Hypertensive chronic kidney disease with stage 1 through stage 4 chronic kidney disease, or unspecified chronic kidney disease; B96.4 Proteus (mirabilis) (morganii) as the cause of diseases classified elsewhere; Z86.16 Personal history of COVID-19; Z90.49 Acquired absence of other specified parts of digestive tract; Z98.890 Other specified postprocedural states; Z83.3 Family history of diabetes mellitus; Z90.89 Acquired absence of other organs; Z86.73 Personal history of transient ischemic attack (TIA), and cerebral infarction without residual deficits; Z95.810 Presence of automatic (implantable) cardiac defibrillator; Z79.899 Other long term (current) drug therapy; Z79.01 Long term (current) use of anticoagulants
CPT/HCPCS: 36415; 73600; 80048; 80053; 80202; 82550; 82553; 82962; 83036; 83605; 83631; 83880; 85025; 85027; 85652; 86140; 87040; 87070; 87077; 87177; 87186; 87205; 87209; 87507; 93925; 96374; 96375; 97110; 97110-GP-CQ; 97116; 97116-GP-CQ; 97161; 97166; 97530-GP-CQ; 99285; J0878; J2185; J2543; J3370; J7030; J7070; U0002

== ENCOUNTER 2021-11-24 21:09 | Emergency (ER) | payer MEDICARE, OTHER ==
[~2021-11-24 21:09] MED LIST changes: +AMOX TR-K CLV1 EAC3 PO; +DEX4 GLUCOSE4 GM PO; +METOPROLOL TART25 MG PO; +METOPROLOL TART50 MG PO
[2021-11-24 22:49] LABS: HEMOGLOBIN 11.1 gm/dl (12.3-15.3); RED BLOOD COUNT 3.83 M/UL (4.00-5.10); WHITE BLOOD COUNT 5.6 K/UL (4.5-11.0)
[2021-11-25] MEDS ORDERED: ZOFRAN ODT 4 MG4 MG SL (02:44)
[2021-11-25] MEDS ORDERED: IMODIUM A-1 MG/7.5 M PO (02:44)
[2021-11-25] MEDS ORDERED: CEPHALEXIN500 M1 PO (02:49)
== END 2021-11-25 03:01 | disposition home or self-care (01) ==
LOC: ER1 21:09
PROVIDERS: Emergency Medicine
DX: R10.11 Right upper quadrant pain (principal); R10.31 Right lower quadrant pain; R10.811 Right upper quadrant abdominal tenderness; R10.813 Right lower quadrant abdominal tenderness; Z20.822 Contact with and (suspected) exposure to COVID-19; E11.9 Type 2 diabetes mellitus without complications; I48.91 Unspecified atrial fibrillation; Z86.73 Personal history of transient ischemic attack (TIA), and cerebral infarction without residual deficits; Z79.4 Long term (current) use of insulin
CPT/HCPCS: 0240U; 80053; 81001; 83605; 83690; 85025; 99284; J2405; Q9967

== ENCOUNTER 2021-12-20 22:12 | Emergency (ER) | payer MEDICARE, OTHER ==
[~2021-12-20 22:12] MED LIST changes: +CEPHALEXIN500 M1 PO; +IMODIUM A-1 MG/7.5 M PO; +ZOFRAN ODT 4 MG4 MG SL
[2021-12-21 00:26] LABS: HEMOGLOBIN 10.6 gm/dl (12.3-15.3); RED BLOOD COUNT 3.67 M/UL (4.00-5.10); WHITE BLOOD COUNT 10.5 K/UL (4.5-11.0)
[2021-12-21 00:53] LABS: BUN/CREATININE RATIO 13 (0-10)
[2021-12-21] MEDS ORDERED: CLEOCIN HCL300 MG PO (03:51)
[2021-12-21 23:17] LABS: CANDIDA ALBICANS Not Detected (Negative); CANDIDA KRUSEI Not Detected (Negative); CANDIDA TROPICALIS Not Detected (Negative); ESCHERICHIA COLI Not Detected (Negative); HAEMOPHILUS INFLUENZAE Not Detected (Negative); KLEBSIELLA OXYTOCA Not Detected (Negative); KLEBSIELLA PNEUMONIAE Not Detected (Negative); KPC-CARBAPENEM-RESISTANCE GENE Not Detected (Negative); PROTEUS Not Detected (Negative); PSEUDOMONAS AERUGINOSA Not Detected (Negative); SERRATIA MARCESANS Not Detected (Negative); STAPHYLOCOCCUS AUREUS Not Detected (Negative); STREP AGALACTIAE (GROUP B) Not Detected (Negative); STREP PYOGENES (GROUP A) Not Detected (Negative); STREPTOCOCCUS Not Detected (Negative); vanA/B (VANCOMYCIN RESIST GENE Not Detected (Negative)
[2021-12-22 00:06] LABS: STAPHYLOCOCCUS DETECTED (Negative)
== END 2021-12-21 05:15 | disposition home or self-care (01) ==
LOC: ER1 22:12
PROVIDERS: Physician Assistant
DX: L03.116 Cellulitis of left lower limb (principal); E11.22 Type 2 diabetes mellitus with diabetic chronic kidney disease; I48.91 Unspecified atrial fibrillation; I12.9 Hypertensive chronic kidney disease with stage 1 through stage 4 chronic kidney disease, or unspecified chronic kidney disease; N18.9 Chronic kidney disease, unspecified; R53.1 Weakness; E78.5 Hyperlipidemia, unspecified; E11.51 Type 2 diabetes mellitus with diabetic peripheral angiopathy without gangrene; K21.9 Gastro-esophageal reflux disease without esophagitis; Z79.4 Long term (current) use of insulin; Z86.73 Personal history of transient ischemic attack (TIA), and cerebral infarction without residual deficits
CPT/HCPCS: 80053; 81001; 82550; 82553; 83605; 84484; 85025; 87040; 87150; 93005; 96365; 99284